=== PATIENT | male | born 1955 | race Hispanic/Latino ===

== ENCOUNTER 2024-12-05 03:18 | Inpatient (IN) | payer OTHER ==
[2024-12-05 03:58] LABS: Absolute Lymphocytes (CBC) 2.2 K/uL (0.7-4.9); Hematocrit 42.2 % (39.6-49.0); Hemoglobin 14.2 g/dL (13.6-17.9); MCH 29.4 pg (27.0-35.0); MCHC 33.8 g/dL (32.0-36.0); MCV 87.2 fL (80-100); MPV 10.3 fL (7.6-11.3); Nucleated RBC Absolute Count 0.0 (0-0); Nucleated Red Blood Cells % 0.0 % (0-0); RBC Red Blood Cell Count 4.84 M/uL (4.33-5.43); White Blood Count 7.20 thou/uL (4.3-10.9)
[2024-12-05 04:04] LABS: PT Prothrombin Time 11.6 SECONDS (10-13.0); Protime INR 1.03
[2024-12-05] MEDS ORDERED: FOLIC ACID 5 MG/ML VIAL ONE (04:13)
[2024-12-05] MEDS ORDERED: NA CHLORIDE 0.9% 1,000 ML ONE ×2 (04:13→09:56)
--- NOTE | 2024-12-05 04:33 | RAD REPORT ---
ADDENDUM #1 CODE STROKE PROTOCOL NOTIFICATION: Dr. Gunnar To MD confirmed receipt of results to Osmar Alfaro on 12/05/2024 4:35 AM CDT. Electronically signed by: Garfield Israel MD 12/05/2024 04:44 AM CDT RP 8 End of Addendum EXAM: CT Head Without Intravenous Contrast CLINICAL HISTORY: The patient is 69 years old and is Male; STROKE ALERT TECHNIQUE: Axial computed tomography images of the head/brain without intravenous contrast. Sagit oscar and coronal reformatted images were created and reviewed. This CT exam was performed using one or more of the following dose reduction techniques: automated exposure control, adjustment of t he mA and/or kV according to patient size, and/or use of iterative reconstruction technique. COMPARISON: No relevant prior studies available. FINDINGS: Brain: Unremarkable. No hemorrhage. No significant white matter disease. No edema. Ventricles: Unremarkable. No ventriculomegaly. Bones/joints: Unremarkable. No acute fracture. Soft tissues: Unremarkable. Sinuses: Unremarkable as visualized. Mastoid air cells: Unremarkable as visualized. No mastoid effusion. * A single impression for all exams can be found at the end of this report EXAM: CT Angiography Head With Intravenous Contrast CLINICAL HISTORY: The patient is 69 years old and is Male; STROKE ALERT TECHNIQUE: Axial computed tomographic angiography images of the head with intravenous contrast. S agittal and coronal reformatted images were created and reviewed. This CT exam was performed using one or more of the following dose reduction techniques: automated exposure control, adjustmen t of the mA and/or kV according to patient size, and/or use of iterative reconstruction technique. MIP reconstructed images were created and reviewed. COMPARISON: No relevant prior studies available. FINDINGS: Right internal carotid artery: No acute findings. Intracranial segment is patent with no signif icant stenosis. No aneurysm. Right anterior cerebral artery: Unremarkable. No occlusion or significant stenosis. No aneury sm. Right middle cerebral artery: Unremarkable. No occlusion or significant stenosis. No aneurysm . Right posterior cerebral artery: Unremarkable. No occlusion or significant stenosis. No aneur ysm. Right vertebral artery: Unremarkable as visualized. Left internal carotid artery: No acute findings. Intracranial segment is patent with no signifi cant stenosis. No aneurysm. Left anterior cerebral artery: Unremarkable. No occlusion or significant stenosis. No aneurys m. Left middle cerebral artery: Unremarkable. No occlusion or significant stenosis. No aneurysm. 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 No occlusion or significant stenosis. No aneurysm. Left vertebral artery: Unremarkable as visualized. Basilar artery: Unremarkable. No occlusion or significant stenosis. No aneurysm. * A single impression for all exams can be found at the end of this report EXAM: CT Angiography Neck With Intravenous Contrast CLINICAL HISTORY: The patient is 69 years old and is Male; STROKE ALERT TECHNIQUE: Routine carotid CT angiography protocol was performed with intravenous contrast. NASCE T criteria using the distal ICAs for comparison were used for evaluation of stenoses. Sagittal and coronal reformatted images were created and reviewed. This CT exam was performed using one or m ore of the following dose reduction techniques: automated exposure control, adjustment of the mA and/or kV according to patient size, and/or use of iterative reconstruction technique. MIP reconstr ucted images were created and reviewed. COMPARISON: None. FINDINGS: VASCULATURE: Right common carotid artery: Unremarkable. No occlusion or significant stenosis. No dissectio n. Right internal carotid artery: Unremarkable. Extracranial segment is patent with no occlusion o r significant stenosis. No dissection. Right external carotid artery: Unremarkable. No occlusion. Right vertebral artery: Unremarkable. No occlusion or significant stenosis. No dissection. Left common carotid artery: Unremarkable. No occlusion or significant stenosis. No dissection . Left internal carotid artery: Unremarkable. Extracranial segment is patent with no occlusion or significant stenosis. No dissection. Left external carotid artery: Unremarkable. No occlusion. Left vertebral artery: Unremarkable. No occlusion or significant stenosis. No dissection. NECK: Bones/joints: Unremarkable. No acute fracture. Soft tissues: Unremarkable. Lung apices: Clear. CAROTID STENOSIS REFERENCE USING NASCET CRITERIA: % ICA stenosis = (1 - narrowest ICA diameter/diameter of distal cervical ICA) x 100. Mild - <50% stenosis. Moderate - 50-69% stenosis. Severe - 70-94% stenosis. Near occlusion - 95-99% stenosis. Occluded - 100% stenosis. * A single impression for all exams can be found at the end of this report IMPRESSION: CT Head Without Intravenous Contrast: No acute intracranial abnormality. CT Angiography Head With Intravenous Contrast: No occlusion or significant stenosis. No aneurysm. CT Angiography Neck With Intravenous Contrast: No significant stenosis. No dissection or occlusion. Electronically signed by: Garfield Israel MD 12/05/2024 04:29 AM CDT RP 8 Due to temporary technical issues with the PACS/[employer]Pages reporting system, reports are being dayanara d by the in-house radiologist without review as a courtesy to ensure prompt reporting the interpreting radiologist is fully responsible for the content of the report. Transcribed Date/Time: 12/05/2024 5:44 AM
[2024-12-05 04:34] LABS: ALT/SGPT 48 U/L (16-61); Albumin 4.1 g/dL (3.4-5.0); Albumin/Globulin Ratio 1.1 (1.1-1.8); Alkaline Phosphatase 70 U/L (45-117); Anion Gap 7.6 mEq/L (5.0-15.0); BUN Blood Urea Nitrogen 18 mg/dL (7-18); Bilirubin Indirect, Calculated 1.1 mg/dL (0.2-0.8); Globulin 3.6 g/dL (2.3-3.5); Glucose Level 149 mg/dL (74-106); HDL Cholesterol 56 mg/dL (40-60); LDL Cholesterol, Calculated 59 mg/dL (<130); LDL Cholesterol,Calc NonReport 59; Lipase 46 U/L (13-75); NT PRO-BNP 57 pg/mL (<125); Troponin High Sensitivity 5.1 pg/mL (<58.9)
--- NOTE | 2024-12-05 04:34 | RAD REPORT ---
ADDENDUM #1 CODE STROKE PROTOCOL NOTIFICATION: Dr. Gunnar To MD confirmed receipt of results to Osmar Alfaro on 12/05/2024 4:35 AM CDT. Electronically signed by: Garfield Israel MD 12/05/2024 04:44 AM CDT RP 8 End of Addendum EXAM: CT Head Without Intravenous Contrast CLINICAL HISTORY: The patient is 69 years old and is Male; STROKE ALERT TECHNIQUE: Axial computed tomography images of the head/brain without intravenous contrast. Sagit oscar and coronal reformatted images were created and reviewed. This CT exam was performed using one or more of the following dose reduction techniques: automated exposure control, adjustment of t he mA and/or kV according to patient size, and/or use of iterative reconstruction technique. COMPARISON: No relevant prior studies available. FINDINGS: Brain: Unremarkable. No hemorrhage. No significant white matter disease. No edema. Ventricles: Unremarkable. No ventriculomegaly. Bones/joints: Unremarkable. No acute fracture. Soft tissues: Unremarkable. Sinuses: Unremarkable as visualized. Mastoid air cells: Unremarkable as visualized. No mastoid effusion. * A single impression for all exams can be found at the end of this report EXAM: CT Angiography Head With Intravenous Contrast CLINICAL HISTORY: The patient is 69 years old and is Male; STROKE ALERT TECHNIQUE: Axial computed tomographic angiography images of the head with intravenous contrast. S agittal and coronal reformatted images were created and reviewed. This CT exam was performed using one or more of the following dose reduction techniques: automated exposure control, adjustmen t of the mA and/or kV according to patient size, and/or use of iterative reconstruction technique. MIP reconstructed images were created and reviewed. COMPARISON: No relevant prior studies available. FINDINGS: Right internal carotid artery: No acute findings. Intracranial segment is patent with no signif icant stenosis. No aneurysm. Right anterior cerebral artery: Unremarkable. No occlusion or significant stenosis. No aneury sm. Right middle cerebral artery: Unremarkable. No occlusion or significant stenosis. No aneurysm . Right posterior cerebral artery: Unremarkable. No occlusion or significant stenosis. No aneur ysm. Right vertebral artery: Unremarkable as visualized. Left internal carotid artery: No acute findings. Intracranial segment is patent with no signifi cant stenosis. No aneurysm. Left anterior cerebral artery: Unremarkable. No occlusion or significant stenosis. No aneurys m. Left middle cerebral artery: Unremarkable. No occlusion or significant stenosis. No aneurysm. 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 No occlusion or significant stenosis. No aneurysm. Left vertebral artery: Unremarkable as visualized. Basilar artery: Unremarkable. No occlusion or significant stenosis. No aneurysm. * A single impression for all exams can be found at the end of this report EXAM: CT Angiography Neck With Intravenous Contrast CLINICAL HISTORY: The patient is 69 years old and is Male; STROKE ALERT TECHNIQUE: Routine carotid CT angiography protocol was performed with intravenous contrast. NASCE T criteria using the distal ICAs for comparison were used for evaluation of stenoses. Sagittal and coronal reformatted images were created and reviewed. This CT exam was performed using one or m ore of the following dose reduction techniques: automated exposure control, adjustment of the mA and/or kV according to patient size, and/or use of iterative reconstruction technique. MIP reconstr ucted images were created and reviewed. COMPARISON: None. FINDINGS: VASCULATURE: Right common carotid artery: Unremarkable. No occlusion or significant stenosis. No dissectio n. Right internal carotid artery: Unremarkable. Extracranial segment is patent with no occlusion o r significant stenosis. No dissection. Right external carotid artery: Unremarkable. No occlusion. Right vertebral artery: Unremarkable. No occlusion or significant stenosis. No dissection. Left common carotid artery: Unremarkable. No occlusion or significant stenosis. No dissection . Left internal carotid artery: Unremarkable. Extracranial segment is patent with no occlusion or significant stenosis. No dissection. Left external carotid artery: Unremarkable. No occlusion. Left vertebral artery: Unremarkable. No occlusion or significant stenosis. No dissection. NECK: Bones/joints: Unremarkable. No acute fracture. Soft tissues: Unremarkable. Lung apices: Clear. CAROTID STENOSIS REFERENCE USING NASCET CRITERIA: % ICA stenosis = (1 - narrowest ICA diameter/diameter of distal cervical ICA) x 100. Mild - <50% stenosis. Moderate - 50-69% stenosis. Severe - 70-94% stenosis. Near occlusion - 95-99% stenosis. Occluded - 100% stenosis. * A single impression for all exams can be found at the end of this report IMPRESSION: CT Head Without Intravenous Contrast: No acute intracranial abnormality. CT Angiography Head With Intravenous Contrast: No occlusion or significant stenosis. No aneurysm. CT Angiography Neck With Intravenous Contrast: No significant stenosis. No dissection or occlusion. Electronically signed by: Garfield Israel MD 12/05/2024 04:29 AM CDT RP 8 Due to temporary technical issues with the PACS/[employer] reporting system, reports are being dayanara d by the in-house radiologist without review as a courtesy to ensure prompt reporting the interpreting radiologist is fully responsible for the content of the report. Transcribed Date/Time: 12/05/2024 5:45 AM
[2024-12-05 04:40] LABS: AST/SGOT 37 U/L (15-37); C-Reactive Protein < 2.90 mg/L (<3.00); Magnesium 1.9 mg/dL (1.6-2.4); Potassium 4.6 mEq/L (3.5-5.1)
--- NOTE | 2024-12-05 04:40 | ER ---
Nurse's Notes [facility] Name: Abisai Anton III Age: 69 yrs Sex: Male : 1955 Arrival Date: 12/05/2024 Time: 03:18 Bed 4 Private MD: Rashel Bertrand Diagnosis: Chest pain, unspecified;Type 2 diabetes mellitus with hyperglycemia;Transient cerebral ischemic attack, unspecified-resolved Presentation: 12/05 03:24 Chief complaint: Patient states: dizziness, nausea, left arm and face numbness lg3 beginning 9pm. Coronavirus screen: Client denies travel out of the [place] in the last 14 days. At this time, the client does not indicate any symptoms associated with coronavirus-19. Ebola Screen: No symptoms or risks identified at this time. Initial Sepsis Screen: Does the patient meet any 2 criteria? No. Patient's initial sepsis screen is negative. Does the patient have a suspected source of infection? No. Patient's initial sepsis screen is negative. Risk Assessment: Do you want to hurt yourself or someone else? Patient reports no desire to harm self or others. Onset of symptoms was December 04, 2024 at 21:00. 03:24 Method Of Arrival: Wheelchair lg3 03:24 Acuity: KATH 2 lg3 Triage Assessment: 03:25 General: Appears in no apparent distress. comfortable, Behavior is calm, cooperative. lg3 Pain: Denies pain. EENT: No deficits noted. No signs and/or symptoms were reported regarding the EENT system. Neuro: Roman Agitation-Sedation Scale (RASS): 0 - Alert and Calm Level of Consciousness is awake, alert, obeys commands, Oriented to person, place, time, situation, Reports dizziness, numbness in face and left arm. Cardiovascular: No deficits noted. Denies chest pain, shortness of breath, Capillary refill < 3 seconds Clubbing of nail beds is absent JVD is absent Patient's skin is warm and dry. Respiratory: No deficits noted. Airway is patent Respiratory effort is even, unlabored, Respiratory pattern is regular, symmetrical. GI: No deficits noted. Abdomen is flat, non-distended, Reports nausea. : No signs and/or symptoms were reported regarding the genitourinary system. Derm: No deficits noted. Skin is intact, is healthy with good turgor, Skin is dry, Skin is normal, Skin temperature is warm. Musculoskeletal: No deficits noted. Circulation, motion, and sensation intact. Range of motion: intact in all extremities, Reports numbness in face and left arm. Historical: - Allergies: 03:25 No Known Allergies; lg3 - Home Meds: 03:25 metformin Oral [Active]; aspirin 81 mg Oral tablet [Active]; lg3 - PMHx: 03:25 diabetes mellitus; lg3 - PSHx: 03:25 None; lg3 - Immunization history:: Adult Immunizations up to date. - Infectious Disease History:: Denies. - Social history:: Smoking status: Patient denies any tobacco usage or history of. Patient/guardian denies using alcohol, street drugs. Screenin:[address] [facility] ED Fall Risk Assessment (Adult) History of falling in the last 3 months, cp4 including since admission No falls in past 3 months (0 pts) Confusion or Disorientation No (0 pts) Intoxicated or Sedated No (0 pts) Impaired Gait No (0 pts) Mobility Assist Device Used No (0 pt) Altered Elimination No (0 pt) Score/Fall Risk Level 0 - 2 = Low Risk Oriented to surroundings, Maintained a safe environment, Assessed \T\ reinforced patient's understanding of fall precautions, Hourly rounding (assess needs \T\ fall precautionary measures) done. Abuse screen: Denies threats or abuse. Denies injuries from another. Nutritional screening: No deficits noted. Tuberculosis screening: No symptoms or risk factors identified. Never had TB. VAN Screening: Arm Drift: Patient shows no arm weakness. Patient is VAN negative. Visual Disturbance: No visual disturbance noted. Aphasia: No aphasia noted. Neglect: No neglect noted. [place] Swallow Protocol Brief Cognitive Screen What is your name? Normal, Where are you right now? Normal, What year is it? Oral Mechanism Examination Facial Symmetry: Normal, Motion: Lip Closure: Normal, Oral Mechanism Result: Normal. 3 oz Water Swallow Challenge: Pt able to drink all water without stopping, coughing, choking or throat clearing: Yes Result: MEHDI COTE Notified: Gunnar To MD. Assessment: 04:02 General: Appears in no apparent distress. comfortable, Behavior is calm, cooperative, cp4 appropriate for age. Pain: Complains of pain in chest and left arm and face Pain does not radiate. Pain currently is 6 out of 10 on a pain scale. Pain began 1 day ago. Neuro: Level of Consciousness is awake, alert, obeys commands, Oriented to person, place, time, situation, Grout Machine Tender are equal bilaterally Moves all extremities. Gait is steady, Speech is normal, Facial symmetry appears normal, Pupils are PERRLA, Intact. Cardiovascular: Patient's skin is warm and dry. Rhythm is sinus rhythm. Respiratory: Airway is patent Respiratory effort is even, unlabored. GI: No signs and/or symptoms were reported involving the gastrointestinal system. : No signs and/or symptoms were reported regarding the genitourinary system. EENT: No signs and/or symptoms were reported regarding the EENT system. Derm: No signs and/or symptoms reported regarding the dermatologic system. Musculoskeletal: No signs and/or symptoms reported regarding the musculoskeletal system. 07:00 General: Appears in no apparent distress. comfortable, Behavior is calm, cooperative, cm10 Assumed care of patient at this time. Pt A\T\Ox4, respirations even and unlabored. Pt reports dizziness, respirations even and unlabored. Updated on plan of care.. 07:00 Neuro: No deficits noted. Level of Consciousness is awake, alert, obeys commands, cm10 Oriented to person, place, time, situation, Grout Machine Tender are equal bilaterally Moves all extremities. Gait is steady, Speech is normal, Facial symmetry appears normal. Respiratory: No deficits noted. Airway is patent Respiratory effort is even, unlabored, Respiratory pattern is regular, symmetrical. 07:55 General: Pt in MRI at this time.. cm10 Vital Signs: 03:24 BP 165 / 90; Pulse 81; Resp 17 S; Temp 98.3(O); Pulse Ox 100% on R/A; Weight 81.19 kg lg3 (R); Height 5 ft. 7 in. (R); 04:00 BP 141 / 91; Pulse 81; Resp 18; Pulse Ox 98% ; cp4 04:30 BP 120 / 73; Pulse 72; Resp 18; Pulse Ox 98% ; cp4 05:00 BP 132 / 74; Pulse 71; Resp 18; Pulse Ox 98% ; cp4 05:30 BP 141 / 77; Pulse 70; Resp 18; Pulse Ox 98% ; cp4 06:00 BP 121 / 75; Pulse 66; Resp 18; Pulse Ox 98% ; cp4 06:30 BP 120 / 72; Pulse 68; Resp 18; Pulse Ox 98% ; cp4 07:00 BP 128 / 76; Pulse 69; Resp 18; Pulse Ox 98% ; cp4 07:30 BP 135 / 77; Pulse 69; Resp 16; Pulse Ox 99% ; cm10 03:24 Body Mass Index 28.04 (81.19 kg, 170.18 cm) lg3 NIH Stroke Scale Scores: 04:02 NIHSS Score: 0 cp4 04:20 NIHSS Score: 0 jhony 07:25 NIHSS Score: 0 cm10 ED Course: 03:21 Patient arrived in ED. jj6 03:21 Rashel Bertrand MD is Private Physician. jj6 03:25 Triage completed. lg3 03:25 Arm band placed on right wrist. lg3 03:29 EKG done, by ED staff, reviewed by Gunnar To MD. oe 03:35 Gunnar To MD is Attending Physician. jhony 03:47 CT Stroke Brain w/o Contrast In Process Unspecified. EDMS 03:47 CT Head Angio In Process Unspecified. EDMS 03:48 CT Neck Angio In Process Unspecified. EDMS 04:02 Patient has correct armband on for positive identification. Bed in low position. Call cp4 light in reach. Side rails up X2. Client placed on continuous cardiac and pulse oximetry monitoring. NIBP monitoring applied. potline monitor on. Pulse ox on. NIBP on. 04:02 No provider procedures requiring assistance completed. Inserted saline lock: 20 gauge cp4 in left antecubital area, using aseptic technique. Blood collected. Flushed with 10 mL NS. Patient maintains SpO2 saturation greater than 95% on room air. 04:20 XRAY Chest (1 view) In Process Unspecified. EDMS 04:32 Sumaya Clemente is Primary Nurse. cp4 04:39 Lio Ferrer MD is Hospitalizing Provider. jhony 07:25 Provided Education on: Need for admit. cm10 07:25 Patient admitted, IV remains in place. cm10 Administered Medications: 04:16 Drug: foLIC Acid IVPB 1 mg IVPB once Route: IVPB; Site: left antecubital; cp4 04:39 Follow up: IV Status: Completed infusion cp4 04:16 Drug: NS 0.9% IV 1000 ml IV at 1000 ml once; to be given as a bolus over 60 minutes cp4 Route: IV; Rate: 1000 ml; Site: left antecubital; 05:05 Follow up: IV Status: Completed infusion cp4 05:05 Drug: Aspirin PO Chewable Tablet 324 mg PO once; 81 mg tablets x 4 Route: PO; cp4 05:08 Follow up: Response: No adverse reaction cp4 05:05 Drug: Clopidogrel PO 75 mg PO once Route: PO; cp4 05:08 Follow up: Response: No adverse reaction cp4 05:05 Drug: Enoxaparin Sub-Q 1 mg/kg Sub-Q once Route: Sub-Q; Site: abdomen; cp4 05:08 Follow up: Response: No adverse reaction cp4 05:05 Drug: Atorvastatin PO 40 mg PO once Route: PO; cp4 05:08 Follow up: Response: No adverse reaction cp4 Medication: 04:02 VIS not applicable for this client. cp4 Outcome: 04:40 Decision to Hospitalize by Provider. jhony 07:25 Admitted to ER Hold. Please see [facility] for further documentation. 10 07:25 Condition: good 07:25 Instructed on the need for admit, 12:39 Patient left the ED. cm10 NIH Stroke Scale - NIH Stroke Score Date: 12/05/2024 Time: 04:02 Total Score = 0 10. Dysarthria (speech clarity - read or repeat words) - 0(Normal) 11. Extinction and Inattention (visual/tactile/auditory/spatial/personal) - 0(No abnormality) 1a. Level of Consciousness (LOC) - 0(Alert) 1b. Level of Consciousness (LOC) (Month \T\ Age) - 0(Both) 1c. LOC Commands (Open \T\ Closes Eyes/Bpo Specialist) - 0(Both) 2. Best Gaze (Lateral Gaze Paresis) - 0(Normal) 3. Visual Field Loss - 0(No visual loss) 4. Facial Palsy - 0(Normal) 5a. Left Arm: Motor (10-second hold) - 0(No drift) 5b. Right Arm: Motor (10-second hold) - 0(No drift) 6a. Left Leg: Motor (5-second hold - always test supine) - 0(No drift) 6b. Right Leg: Motor (5-second hold - always test supine) - 0(No drift) 7. Limb Ataxia (finger/nose \T\ heel/hardwick - test with eyes open) - 0(Absent) 8. Sensory Loss (pinprick arms/legs/face) - 0(Normal) 9. Best Language: Aphasia (description/naming/reading) - 0(No aphasia) Initials: cp4 NIH Stroke Scale - NIH Stroke Score Date: 12/05/2024 Time: 04:20 Total Score = 0 10. Dysarthria (speech clarity - read or repeat words) - 0(Normal) 11. Extinction and Inattention (visual/tactile/auditory/spatial/personal) - 0(No abnormality) 1a. Level of Consciousness (LOC) - 0(Alert) 1b. Level of Consciousness (LOC) (Month \T\ Age) - 0(Both) 1c. LOC Commands (Open \T\ Closes Eyes/Bpo Specialist) - 0(Both) 2. Best Gaze (Lateral Gaze Paresis) - 0(Normal) 3. Visual Field Loss - 0(No visual loss) 4. Facial Palsy - 0(Normal) 5a. Left Arm: Motor (10-second hold) - 0(No drift) 5b. Right Arm: Motor (10-second hold) - 0(No drift) 6a. Left Leg: Motor (5-second hold - always test supine) - 0(No drift) 6b. Right Leg: Motor (5-second hold - always test supine) - 0(No drift) 7. Limb Ataxia (finger/nose \T\ heel/hardwick - test with eyes open) - 0(Absent) 8. Sensory Loss (pinprick arms/legs/face) - 0(Normal) 9. Best Language: Aphasia (description/naming/reading) - 0(No aphasia) Initials: jhony NIH Stroke Scale - NIH Stroke Score Date: 12/05/2024 Time: 07:25 Total Score = 0 10. Dysarthria (speech clarity - read or repeat words) - 0(Normal) 11. Extinction and Inattention (visual/tactile/auditory/spatial/personal) - 0(No abnormality) 1a. Level of Consciousness (LOC) - 0(Alert) 1b. Level of Consciousness (LOC) (Month \T\ Age) - 0(Both) 1c. LOC Commands (Open \T\ Closes Eyes/Bpo Specialist) - 0(Both) 2. Best Gaze (Lateral Gaze Paresis) - 0(Normal) 3. Visual Field Loss - 0(No visual loss) 4. Facial Palsy - 0(Normal) 5a. Left Arm: Motor (10-second hold) - 0(No drift) 5b. Right Arm: Motor (10-second hold) - 0(No drift) 6a. Left Leg: Motor (5-second hold - always test supine) - 0(No drift) 6b. Right Leg: Motor (5-second hold - always test supine) - 0(No drift) 7. Limb Ataxia (finger/nose \T\ heel/hardwick - test with eyes open) - 0(Absent) 8. Sensory Loss (pinprick arms/legs/face) - 0(Normal) 9. Best Language: Aphasia (description/naming/reading) - 0(No aphasia) Initials: cm10 Signatures: Dispatcher [employer] EDMS Gunnar To MD MD cha Espinosa, [place] oe Able, Lacie RN RN lg3 Katey Whittj6 Marilee Gama RN RN cm10 Sumaya Clemente cp4 Corrections: (The following items were deleted from the chart) 09:57 07:30 BP 135 / 7; Pulse 69bpm; Resp 16bpm; Pulse Ox 99%; cm10 cm10
--- NOTE | 2024-12-05 04:41 | EDPHYS ---
Physician Documentation [facility] Name: Abisai Anton III Age: 69 yrs Sex: Male : 1955 Arrival Date: 12/05/2024 Time: 03:18 Bed 4 Private MD: Rashel Bertrand ED Physician Gunnar To HPI: 12/05 03:40 This 69 yrs old Male presents to ER via Wheelchair with complaints of Chest jhony Pain, Arm Pain. 03:40 The patient or guardian reports chest pain that is located primarily in the substernal jhony area. Onset: at 09:30. The pain radiates to face and left arm. Associated signs and symptoms: Pertinent positives: lightheadedness, shortness of breath. The chest pain is described as burning, a pressure. Duration: The patient or guardian reports a single episode, that is now resolved. Modifying factors: The symptoms are alleviated by nothing. the symptoms are aggravated by nothing. Severity of pain: At its worst the pain was moderate in the emergency department the pain has improved moderately. The patient has experienced similar episodes in the past, a few times. Historical: - Allergies: 03:25 No Known Allergies; lg3 - Home Meds: 03:25 metformin Oral [Active]; aspirin 81 mg Oral tablet [Active]; lg3 - PMHx: 03:25 diabetes mellitus; lg3 - PSHx: 03:25 None; lg3 - Immunization history:: Adult Immunizations up to date. - Infectious Disease History:: Denies. - Social history:: Smoking status: Patient denies any tobacco usage or history of. Patient/guardian denies using alcohol, street drugs. ROS: 03:41 Constitutional: Negative for fever, chills, and weight loss, Eyes: Negative for injury, jhony pain, redness, and discharge, ENT: Negative for injury, pain, and discharge, Neck: Negative for injury, pain, and swelling, Respiratory: Negative for shortness of breath, cough, wheezing, and pleuritic chest pain, Abdomen/GI: Negative for abdominal pain, nausea, vomiting, diarrhea, and constipation, Back: Negative for injury and pain, : Negative for injury, bleeding, discharge, and swelling, MS/Extremity: Negative for injury and deformity, Skin: Negative for injury, rash, and discoloration, Psych: Negative for depression, anxiety, suicide ideation, homicidal ideation, and hallucinations, Allergy/Immunology: Negative for hives, rash, and allergies, Endocrine: Negative for neck swelling, polydipsia, polyuria, polyphagia, and marked weight changes, Hematologic/Lymphatic: Negative for swollen nodes, abnormal bleeding, and unusual bruising, 03:41 Cardiovascular: Positive for chest pain, of the chest, 03:41 Neuro: Positive for numbness, tingling, of the face and left arm, Exam: 03:41 Radiologist reports: see report jhony 03:41 Constitutional: This is a well developed, well nourished patient who is awake, alert, and in no acute distress. Eyes: Pupils equal round and reactive to light, extra-ocular motions intact. Lids and lashes normal. Conjunctiva and sclera are non-icteric and not injected. Cornea within normal limits. Periorbital areas with no swelling, redness, or edema. ENT: Nares patent. No nasal discharge, no septal abnormalities noted. Tympanic membranes are normal and external auditory canals are clear. Oropharynx with no redness, swelling, or masses, exudates, or evidence of obstruction, uvula midline. Mucous membranes moist. Neck: Trachea midline, no thyromegaly or masses palpated, and no cervical lymphadenopathy. Supple, full range of motion without nuchal rigidity, or vertebral point tenderness. No Meningismus. Chest/axilla: Normal chest wall appearance and motion. Nontender with no deformity. No lesions are appreciated. Respiratory: Lungs have equal breath sounds bilaterally, clear to auscultation and percussion. No rales, rhonchi or wheezes noted. No increased work of breathing, no retractions or nasal flaring. Abdomen/GI: Soft, non-tender, with normal bowel sounds. No distension or tympany. No guarding or rebound. No evidence of tenderness throughout. Back: No spinal tenderness. No costovertebral tenderness. Full range of motion. Male : Normal genitalia with no discharge or lesions. Skin: Warm, dry with normal turgor. Normal color with no rashes, no lesions, and no evidence of cellulitis. Neuro: Awake and alert, GCS 15, oriented to person, place, time, and situation. Cranial nerves II-XII grossly intact. Motor strength 5/5 in all extremities. Sensory grossly intact. Cerebellar exam normal. Normal gait. Psych: Awake, alert, with orientation to person, place and time. Behavior, mood, and affect are within normal limits. 03:41 Head/face: Noted is numbness left face 930 pm. 03:41 ECG was reviewed by the Attending Physician. 03:41 Musculoskeletal/extremity: DVT Exam: No signs of deep vein thrombosis. no pain, no swelling, no tenderness, negative Homans' sign noted on exam, no appreciated bluish discoloration, no erythema, no increased warmth, Vital Signs: 03:24 BP 165 / 90; Pulse 81; Resp 17 S; Temp 98.3(O); Pulse Ox 100% on R/A; Weight 81.19 kg lg3 (R); Height 5 ft. 7 in. (R); 04:00 BP 141 / 91; Pulse 81; Resp 18; Pulse Ox 98% ; cp4 04:30 BP 120 / 73; Pulse 72; Resp 18; Pulse Ox 98% ; cp4 05:00 BP 132 / 74; Pulse 71; Resp 18; Pulse Ox 98% ; cp4 05:30 BP 141 / 77; Pulse 70; Resp 18; Pulse Ox 98% ; cp4 06:00 BP 121 / 75; Pulse 66; Resp 18; Pulse Ox 98% ; cp4 06:30 BP 120 / 72; Pulse 68; Resp 18; Pulse Ox 98% ; cp4 07:00 BP 128 / 76; Pulse 69; Resp 18; Pulse Ox 98% ; cp4 07:30 BP 135 / 77; Pulse 69; Resp 16; Pulse Ox 99% ; cm10 03:24 Body Mass Index 28.04 (81.19 kg, 170.18 cm) lg3 NIH Stroke Scale Scores: 04:02 NIHSS Score: 0 cp4 04:20 NIHSS Score: 0 jhony 07:25 NIHSS Score: 0 cm10 MDM: 03:35 Medical Screening Exam initiated jhony 03:44 Differential diagnosis: abnormal EKG, acute myocardial infarction, acute pericarditis, jhony anxiety, coronary artery disease chest wall pain, congestive heart failure Cholelithiasis costochondritis, CVA, TIA, Dementia, paralysis, esophagitis, gastritis, herpes zoster, hiatal hernia, myocarditis, pancreatitis, peptic ulcer disease, pericarditis, pleurisy, pulmonary embolus, stable angina, thoracic aortic disection, unstable angina. Differential Diagnosis altered mental status, sepsis, flu. HEART Score: History: Moderately Suspicious (1), ECG: Normal (0), Age: > or = 65 years (2), Risk Factors: > or = 3 Risk factors for atherosclerotic disease (2), [Hypercholesterolemia] [Hypertension] [DM] [+ Family HX] Troponin: < or = 1 x Normal Limit (0). The patient was given aspirin in the Emergency Department. TNKase (Tenecteplase) Screening: Indications: Definite evidence of stroke, ischemic, embolic, or hypertensive: Yes. Treatment will start within 4.5 hours onset of symptoms: No. No evidence of intracranial hemorrhage or CT of head and no evidence of peripheral hemorrhage or recent CVA: Yes. Consent for thrombolytic therapy: No. Contraindications: Patient reports onset of signs and symptoms of stroke greater than 6 hours ago: Yes. MALIA Risk Score: 1 - patient's age is greater or equal to 65 years, 1 - Three or more CAD risk factors, 1- Known CAD, 1 - ASA use in past 7 days, 1 - Recent [<24hrs] Severe Angina, TOTAL SCORE = 5. Data reviewed: vital signs, nurses notes, lab test result(s), EKG, radiologic studies, plain films. Consideration of Admission/Observation Patient was admitted/placed on observation. Escalation of care including admission/observation considered. I considered the following discharge prescriptions or medication management in the emergency department Medications were administered in the Emergency Department. See MAR. Test considered but Not performed: MRI: no mri , not available. Care significantly affected by the following chronic conditions: Diabetes, Hypertension, Obesity. Counseling: I had a detailed discussion with the patient and/or guardian regarding the historical points, exam findings, and any diagnostic results supporting the discharge/admit diagnosis, the presence of at least one elevated blood pressure reading (>120/80) during this emergency department visit, lab results, radiology results, the need for further work-up and treatment in the hospital. 04:21 ED course: onset 930 pm, no tnk candidate, if lvo neg asp, plavix , lovenox, mri in am, jhony echo, neuro consult. 12/05 03:38 Order name: Basic Metabolic Panel; Complete Time: 04:50 [facility] 12/05 03:38 Order name: CBC with Diff; Complete Time: 04:14 [facility] 12/05 03:38 Order name: LFT's; Complete Time: 04:50 jhony 12/05 03:38 Order name: Magnesium; Complete Time: 04:50 jhony 12/05 03:38 Order name: NT PRO-BNP; Complete Time: 04:50 jhony 12/05 03:38 Order name: PT-INR; Complete Time: 04:14 jhony 12/05 03:38 Order name: Troponin HS; Complete Time: 04:50 jhony 12/05 03:38 Order name: Lipase; Complete Time: 04:50 jhony 12/05 03:38 Order name: UA Rfx Kade Cult if indicated 12/05 03:38 Order name: Lipid Profile; Complete Time: 04:50 jhony 12/05 03:38 Order name: CRP; Complete Time: 04:50 jhony 12/05 03:40 Order name: Glucose, Ancillary Testing; Complete Time: 04:14 EDMS 12/05 05:41 Order name: CBC with Automated Diff EDMS 12/05 05:41 Order name: CBC with Automated Diff EDMS 12/05 05:41 Order name: Comprehensive Metabolic Panel EDMS 12/05 05:41 Order name: Comprehensive Metabolic Panel EDMS 12/05 05:41 Order name: Lipid Profile EDMS 12/05 05:41 Order name: Lipid Profile EDMS 12/05 05:41 Order name: Troponin High Sensitivity EDMS 12/05 05:41 Order name: Troponin High Sensitivity EDMS 12/05 05:41 Order name: Troponin High Sensitivity EDMS 12/05 05:41 Order name: Troponin High Sensitivity EDMS 12/05 05:41 Order name: Troponin High Sensitivity EDMS 12/05 05:41 Order name: Troponin High Sensitivity EDMS 12/05 06:44 Order name: CREATININE WHOLE BLOOD EDMS 12/05 03:38 Order name: XRAY Chest (1 view) jhony 12/05 03:38 Order name: CT Stroke Brain w/o Contrast jhony 12/05 03:38 Order name: CT Head Angio jhony 12/05 03:38 Order name: CT Neck Angio jhony 12/05 05:43 Order name: Echo with Doppler EDMS 12/05 05:43 Order name: Brain Wo Cont EDMS 12/05 03:38 Order name: EKG; Complete Time: 03:39 jhony 12/05 03:38 Order name: Cardiac monitoring; Complete Time: 04:02 jhony 12/05 03:38 Order name: EKG - Nurse/Tech; Complete Time: 04:02 [facility] 12/05 03:38 Order name: IV Saline Lock; Complete Time: 04:02 [facility] 12/05 03:38 Order name: Labs collected and sent; Complete Time: 04:02 [facility] 12/05 03:38 Order name: O2 Per Protocol; Complete Time: 04:02 [facility] 12/05 03:38 Order name: O2 Sat Monitoring; Complete Time: 04:02 [facility] EC:41 Rate is 85 beats/min. Rhythm is regular. QRS Tynan is Normal. FL interval is normal. QRS jhony interval is normal. QT interval is normal. No Q waves. T waves are Normal. No ST changes noted. Clinical impression: Normal ECG and No evidence of ischemia. Interpreted by me. Reviewed by me. Administered Medications: 04:16 Drug: foLIC Acid IVPB 1 mg IVPB once Route: IVPB; Site: left antecubital; cp4 04:39 Follow up: IV Status: Completed infusion cp4 04:16 Drug: NS 0.9% IV 1000 ml IV at 1000 ml once; to be given as a bolus over 60 minutes cp4 Route: IV; Rate: 1000 ml; Site: left antecubital; 05:05 Follow up: IV Status: Completed infusion cp4 05:05 Drug: Aspirin PO Chewable Tablet 324 mg PO once; 81 mg tablets x 4 Route: PO; cp4 05:08 Follow up: Response: No adverse reaction cp4 05:05 Drug: Clopidogrel PO 75 mg PO once Route: PO; cp4 05:08 Follow up: Response: No adverse reaction cp4 05:05 Drug: Enoxaparin Sub-Q 1 mg/kg Sub-Q once Route: Sub-Q; Site: abdomen; cp4 05:08 Follow up: Response: No adverse reaction cp4 05:05 Drug: Atorvastatin PO 40 mg PO once Route: PO; cp4 05:08 Follow up: Response: No adverse reaction cp4 Disposition: 04:22 Critical Care:. jhony Disposition Summary: 12/05/24 04:40 Hospitalization Ordered Notes: Hospitalization Status: Observation jhony Provider: Lio Ferrer cha Condition: Stable jhony Problem: new jhony Symptoms: have improved jhony Bed/Room Type: Standard jhony Location: Telemetry/MedSurg (observation)(12/05/24 11:30) bd Room Assignment: [facility](12/05/24 11:52) bd Diagnosis - Chest pain, unspecified jhony - Type 2 diabetes mellitus with hyperglycemia jhony - Transient cerebral ischemic attack, unspecified - resolved jhony Forms: - Medication Reconciliation Form jhony - SBAR form jhony - Leadership Thank You Letter jhony Critical care time excluding procedures: 04:22 Critical care time: Bedside Care: 30 minutes, Consultation: 10 minutes, Family jhony Intervention: 15 minutes. Total time: 55 minutes NIH Stroke Scale - NIH Stroke Score Date: 12/05/2024 Time: 04:02 Total Score = 0 10. Dysarthria (speech clarity - read or repeat words) - 0(Normal) 11. Extinction and Inattention (visual/tactile/auditory/spatial/personal) - 0(No abnormality) 1a. Level of Consciousness (LOC) - 0(Alert) 1b. Level of Consciousness (LOC) (Month \T\ Age) - 0(Both) 1c. LOC Commands (Open \T\ Closes Eyes/Technical Education Teacher) - 0(Both) 2. Best Gaze (Lateral Gaze Paresis) - 0(Normal) 3. Visual Field Loss - 0(No visual loss) 4. Facial Palsy - 0(Normal) 5a. Left Arm: Motor (10-second hold) - 0(No drift) 5b. Right Arm: Motor (10-second hold) - 0(No drift) 6a. Left Leg: Motor (5-second hold - always test supine) - 0(No drift) 6b. Right Leg: Motor (5-second hold - always test supine) - 0(No drift) 7. Limb Ataxia (finger/nose \T\ heel/hardwick - test with eyes open) - 0(Absent) 8. Sensory Loss (pinprick arms/legs/face) - 0(Normal) 9. Best Language: Aphasia (description/naming/reading) - 0(No aphasia) Initials: cp4 NIH Stroke Scale - NIH Stroke Score Date: 12/05/2024 Time: 04:20 Total Score = 0 10. Dysarthria (speech clarity - read or repeat words) - 0(Normal) 11. Extinction and Inattention (visual/tactile/auditory/spatial/personal) - 0(No abnormality) 1a. Level of Consciousness (LOC) - 0(Alert) 1b. Level of Consciousness (LOC) (Month \T\ Age) - 0(Both) 1c. LOC Commands (Open \T\ Closes Eyes/Technical Education Teacher) - 0(Both) 2. Best Gaze (Lateral Gaze Paresis) - 0(Normal) 3. Visual Field Loss - 0(No visual loss) 4. Facial Palsy - 0(Normal) 5a. Left Arm: Motor (10-second hold) - 0(No drift) 5b. Right Arm: Motor (10-second hold) - 0(No drift) 6a. Left Leg: Motor (5-second hold - always test supine) - 0(No drift) 6b. Right Leg: Motor (5-second hold - always test supine) - 0(No drift) 7. Limb Ataxia (finger/nose \T\ heel/hardwick - test with eyes open) - 0(Absent) 8. Sensory Loss (pinprick arms/legs/face) - 0(Normal) 9. Best Language: Aphasia (description/naming/reading) - 0(No aphasia) Initials: [facility] NIH Stroke Scale - NIH Stroke Score Date: 12/05/2024 Time: 07: Total Score = 0 10. Dysarthria (speech clarity - read or repeat words) - 0(Normal) 11. Extinction and Inattention (visual/tactile/auditory/spatial/personal) - 0(No abnormality) 1a. Level of Consciousness (LOC) - 0(Alert) 1b. Level of Consciousness (LOC) (Month \T\ Age) - 0(Both) 1c. LOC Commands (Open \T\ Closes Eyes/Technical Education Teacher) - 0(Both) 2. Best Gaze (Lateral Gaze Paresis) - 0(Normal) 3. Visual Field Loss - 0(No visual loss) 4. Facial Palsy - 0(Normal) 5a. Left Arm: Motor (10-second hold) - 0(No drift) 5b. Right Arm: Motor (10-second hold) - 0(No drift) 6a. Left Leg: Motor (5-second hold - always test supine) - 0(No drift) 6b. Right Leg: Motor (5-second hold - always test supine) - 0(No drift) 7. Limb Ataxia (finger/nose \T\ heel/hardwick - test with eyes open) - 0(Absent) 8. Sensory Loss (pinprick arms/legs/face) - 0(Normal) 9. Best Language: Aphasia (description/naming/reading) - 0(No aphasia) Initials: cm10 Signatures: Dispatcher [employer] EDMS ArabellaRoxana harvey bd Gunnar To MD MD cha Garcia, Cindy RN SHANTANU Emani Bettencourt RN RN 3 Sumaya Clemente 4 Corrections: (The following items were deleted from the chart) 03:39 03:39 BASIC METABOLIC PANEL+C.LAB.BRZ ordered. EDMS EDMS 03:39 03:39 CBC+H.LAB.BRZ ordered. EDMS EDMS 03:39 03:39 HEPATIC FUNCTION+C.LAB.BRZ ordered. EDMS EDMS 03:39 03:39 MAGNESIUM+C.LAB.BRZ ordered. EDMS EDMS 03:39 03:39 PROBNP+C.LAB.BRZ ordered. EDMS EDMS 03:39 03:39 PROTIME (+INR)+COAG.LAB.BRZ ordered. EDMS EDMS 03:39 03:39 Troponin High Sensitivity+C.LAB.BRZ ordered. EDMS EDMS 03:39 03:39 LIPASE+C.LAB.BRZ ordered. EDMS EDMS 03:39 03:39 UA Rfx Kade Cult if indicated+U.LAB.BRZ ordered. EDMS EDMS 03:39 03:39 LIPID PROFILE+C.LAB.BRZ ordered. EDMS EDMS 03:39 03:39 C-REACTIVE PROTEIN+C.LAB.BRZ ordered. EDMS EDMS 03:39 03:39 CT-STROKE BRAIN W/O CONTRAST+CT.RAD.BRZ ordered. EDMS EDMS 03:39 03:39 Head Angio+CT.RAD.BRZ ordered. EDMS EDMS 03:39 03:39 Neck Angio+CT.RAD.BRZ ordered. EDMS EDMS 05:11 04:40 Telemetry/MedSurg (observation) jhony cg 05:11 04:40 jhony cg 11:30 05:11 [facility] ER HOLD cg bd 11:30 05:11 ERHOLD- cg bd 11:52 11:30 422 bd bd
[2024-12-05] MEDS ORDERED: ASPIRIN 81 MG CHEWABLE TABLET ONE (05:00)
[2024-12-05] MEDS ORDERED: ATORVASTATIN 40 MG TAB ONE (05:00)
[2024-12-05] MEDS ORDERED: ENOXAPARIN 80 MG/0.8 ML SQ ONE (05:00)
[2024-12-05] MEDS ORDERED: CLOPIDOGREL 75 MG TABLET ONE (05:00)
--- NOTE | 2024-12-05 05:35 | P.HP ---
Certification for Inpatient Patient admitted to: Inpatient With expected LOS: >2 Midnights Practitioner: I am a practitioner with admitting privileges, knowledge of patient current condition, hospital course, and medical plan of care. Services: Services provided to patient in accordance with Admission requirements found in Title 42 Section 412.3 of the Code of Federal Regulations Patient History Date of Service: 12/05/24 History of Present Illness: 69 yrs old Male with past medical history of diabetes, hypertension who was brought to ER with complaints of Chest Pain and Arm Pain. His chest pain that is located primarily in the substernal area. Started at 09:30. The pain radiates to face and left arm. Associated with lightheadedness and shortness of breath.The chest pain is described as burning, a pressure. The symptoms are alleviated by nothing. the symptoms are aggravated by nothing. Patient is also complaining of some numbness on the left side of the arm. Patient was assessed in the ER and was admitted for further workup Allergies No Known Allergies Allergy (Verified 09/10/24 06:15) Home medications list reviewed: Yes Home Medications: Aspirin [Aspirin EC 81 MG] 81 mg PO DAILY #30 tab 09/10/24 Bimatoprost [Lumigan Opthalmic Drops*] 1 drop EACH EYE BEDTIME 09/10/24 Brimonidine Tartrate/Timolol [Combigan 0.2%-0.5% Eye Drops] 1 drop EACH EYE BID 09/10/24 Metformin HCl 1,000 mg PO BID 09/10/24 Multivitamin/Iron/Folic Acid [Centrum Adults Tablet] 1 each PO DAILY 09/10/24 Rosuvastatin [Crestor] 5 mg PO BEDTIME #30 tab 09/10/24 - Past Medical/Surgical History Diabetic: Yes Past Medical History: Reviewed- Non-Contributory -: DM -: Hepatitis C Past Surgical History: Reviewed- Non-Contributory -: Vasectomy - Family History Family History: Reviewed- Non-Contributory - Social History Smoking Status: Never smoker Alcohol use: No CD- Drugs: No Caffeine use: Yes Review of Systems 10-point ROS is otherwise unremarkable Other: Constitutional: Reports: generalized weakness. Skin: Denies: rash. Allergy/Immun: Denies: rhinorrhea, sneezing. Eyes: Denies: visual loss/blurred. ENT: Denies: earache, nasal congestion. Respiratory: Denies: non productive cough. Cardiovascular: Denies: chest pain, palpitations. GI: Denies: diarrhea, nausea. : Denies: dysuria. Musculoskeletal: Reports: arthritis. Denies: extremity pain. Heme: Denies: bleeding. Endocrine: Denies: polydipsia. Neuro: Reports: dizziness, gait problem, lightheaded, spinning sensation. Psych: Reports: anxiety. All systems rev & neg: except as noted Physical Examination - Vital Signs Temperature: 98.2 F Blood Pressure: 138/76 Pulse: 76 Respirations: 18 Pulse Ox (%): 94 - Physical Exam General: Alert, In no apparent distress, Oriented x3 HEENT: Atraumatic, Normocephalic, PERRLA Neck: Supple, No Thyromegaly Respiratory: Clear to auscultation bilaterally, Normal air movement Cardiovascular: Regular rate/rhythm, Normal S1 S2 Capillary refill: <2 Seconds Gastrointestinal: Soft and benign, Non-distended, W/out hepatosplenomegaly Musculoskeletal: No clubbing, No swelling Integumentary: No rashes Neurological: Other (Alert awake nonfocal) Lymphatics: No axilla or inguinal lymphadenopathy - Studies Laboratory Data (last 24 hrs) 12/05/24 12/05/24 12/05/24 03:28 03:28 03:28 WBC 7.20 Hgb 14.2 Hct 42.2 Plt Count 214 PT 11.6 INR 1.03 Sodium 135 L Potassium 4.6 BUN 18 Creatinine 0.96 Glucose 149 H Magnesium 1.9 Total Bilirubin 1.4 H AST 37 ALT 48 Alkaline Phosphatase 70 Triglycerides 71 Cholesterol 129 HDL Cholesterol 56 Cholesterol/HDL Ratio 2.30 Lipase 46 Assessment and Plan - Plan Chest pain rule out ACS Will trend cardiac enzymes Will monitor telemetry Started on aspirin and statin EKG did not show any acute changes suggestive of ischemia Patient denies any chest pain at this time Will get an echocardiogram Cardiology consult CVA/TIA No focal weakness Numbness of left-sided body Started on aspirin and statin CT CTA findings noted MRI brain ordered Monitor neuro vital signs Monitor under telemetry Diabetes Insulin sliding scale Accu-Chek before every meal and at bedtime GI/DVT prophylaxis Advanced directive full code Discharge Plan: Home Plan to discharge in: 48 Hours - Advance Directives Does patient have a Living Will: No Does patient have a Durable POA for Healthcare: No - Code Status/Comfort Care Code Status: Full Code Time Spent Managing Pts Care (In Minutes): 48
[2024-12-05] MEDS ORDERED: ONDANSETRON 4 MG/2 ML VIAL IV PRN (05:36)
[2024-12-05] MEDS ORDERED: ACETAMINOPHEN 325 MG TABLET PO PRN (05:36)
--- NOTE | 2024-12-05 05:50 | RAD REPORT ---
INDICATION: CHEST PAIN COMPARISON: No existing relevant imaging studies are available FINDINGS: Single frontal view of the chest was obtained. SUPPORT DEVICES: None HEART/MEDIASTINUM: Cardiomediastinal contours are normal. LUNGS/PLEURA: Lungs are clear. No pleural effusion or pneumothorax. OTHER: No other significant findings. IMPRESSION: No acute findings. Electronically signed by: Steven Spence DO 12/05/2024 04:35 AM CDT RP NR Due to temporary technical issues with the PACS/[employer] reporting system, reports are being dayanara d by the in-house radiologist without review as a courtesy to ensure prompt reporting the interpreting radiologist is fully responsible for the content of the report. Transcribed Date/Time: 12/05/2024 5:50 AM
[2024-12-05 05:57] LABS: Urine Microscopic Reflex YN NO UMIC
[2024-12-05] MEDS: ASPIRIN EC 81 MG TAB PO SCH (09:00)
[2024-12-05] MEDS: ENOXAPARIN 40 MG/0.4 ML SQ SCH (09:00)
--- NOTE | 2024-12-05 09:03 | RAD REPORT ---
EXAMINATION: MRI BRAIN WITHOUT CONTRAST CLINICAL INDICATION: Dizziness TECHNIQUE: Multiplanar multisequence MR images of the brain were obtained without intravenous contras t. Unless otherwise specified, incidental findings do not require dedicated imaging follow-up. COMPARISON: December 05, 2004 FINDINGS: Mild abnormal signal within periventricular, deep and subcortical white matter probably ischemic mitchell ges secondary to small vessel disease. Diffusion weighted/ADC mapping does not demonstrate evidence of an acute infarction. Ventricles are normal caliber. No extra-axial fluid collection. No fluid within the sinuses/mastoid seen IMPRESSION: No acute intracranial abnormalities displayed
[2024-12-05] MEDS ORDERED: ENOXAPARIN 40 MG/0.4 ML SQ ONE (09:42)
[2024-12-05] MEDS ORDERED: FAMOTIDINE 20 MG/2 ML VIAL IV ONE (09:56)
--- NOTE | 2024-12-05 13:52 | P.CNS ---
Date of Consult: 12/05/24 Chief Complaint: chest pain History of Present Illness: Patient with PMH of HTN, presented with chest pain that happened yesterday, pressure in nature, radiated to his neck, denies any other cardiac symptoms. Allergies No Known Allergies Allergy (Verified 09/10/24 06:15) Home medications list reviewed: Yes Home Medications: Aspirin [Aspirin EC 81 MG] 81 mg PO DAILY #30 tab 09/10/24 Bimatoprost [Lumigan Opthalmic Drops*] 1 drop EACH EYE BEDTIME 09/10/24 Brimonidine Tartrate/Timolol [Combigan 0.2%-0.5% Eye Drops] 1 drop EACH EYE BID 09/10/24 Metformin HCl 1,000 mg PO BID 09/10/24 Multivitamin/Iron/Folic Acid [Centrum Adults Tablet] 1 each PO DAILY 09/10/24 Atorvastatin Calcium 40 mg PO BEDTIME 12/05/24 Metoprolol Succinate [Toprol Xl] 25 mg PO DAILY 12/05/24 - Past Medical/Surgical History Diabetic: Yes -: DM -: Hepatitis C -: Vasectomy - Social History Alcohol use: No CD- Drugs: No Caffeine use: Yes Place of Residence: Home Review of Systems 10-point ROS is otherwise unremarkable Physical Examination Temp Pulse Resp BP Pulse Ox 98.2 F 65 15 140/83 100 12/05/24 10:00 12/05/24 10:00 12/05/24 10:00 12/05/24 10:00 12/05/24 10:00 General: Alert, In no apparent distress HEENT: Atraumatic, PERRLA, Mucous membr. moist/pink, EOMI, Sclerae nonicteric Neck: Supple, 2+ carotid pulse no bruit, No LAD, Without JVD or thyroid abnormality Respiratory: Clear to auscultation bilaterally, Normal air movement Cardiovascular: Regular rate/rhythm, Normal S1 S2 Gastrointestinal: Normal bowel sounds, No tenderness Musculoskeletal: No tenderness Integumentary: No rashes Neurological: Normal gait, Normal speech, Normal tone, Normal affect Lymphatics: No axilla or inguinal lymphadenopathy Laboratory Data (last 24 hrs) 12/05/24 12/05/24 12/05/24 03:28 03:28 03:28 WBC 7.20 Hgb 14.2 Hct 42.2 Plt Count 214 PT 11.6 INR 1.03 Sodium 135 L Potassium 4.6 BUN 18 Creatinine 0.96 Glucose 149 H Magnesium 1.9 Total Bilirubin 1.4 H AST 37 ALT 48 Alkaline Phosphatase 70 Triglycerides 71 Cholesterol 129 HDL Cholesterol 56 Cholesterol/HDL Ratio 2.30 Lipase 46 - Problems (1) Chest pain Current Visit: Yes Status: Acute Plan: concern for angina NPO after midnight for coronary angiogram in am ASA 81 mg daily Lipitor 40 mg daily get echo (2) HTN (hypertension) Current Visit: Yes Status: Acute Plan: continue Toprol XL 25mg daily (3) HLD (hyperlipidemia) Current Visit: Yes Status: Acute Plan: continue lipitor 40 mg daily
--- NOTE | 2024-12-05 16:41 | P.PN ---
Subjective Date of Service: 12/05/24 Chief Complaint: chest pain Subjective: Improving <Denise Desai - Last Filed: 12/05/24 18:39> Date of Service: 12/05/24 <Delmis Ortega - Last Filed: 12/06/24 05:05> Review of Systems General: Weakness Eyes: Unremarkable ENT: Unremarkable Respiratory: SOB with Excertion Cardiovascular: Chest Pain Gastrointestinal: Unremarkable Genitourinary: Unremarkable Musculoskeletal: Unremarkable Neurological: Weakness Lymphatics: Unremarkable <Denise Desai - Last Filed: 12/05/24 18:39> Physical Examination - Vital Signs Temperature: 98.3 F Blood Pressure: 135/77 Pulse: 69 Respirations: 16 Pulse Ox (%): 100 - Physical Exam General: Alert, In no apparent distress, Oriented x3, Cooperative HEENT: Atraumatic, PERRLA, EOMI Neck: Supple, JVD not distended Respiratory: Clear to auscultation bilaterally, Normal air movement Cardiovascular: Regular rate/rhythm, Normal S1 S2 Capillary refill: <2 Seconds Gastrointestinal: Normal bowel sounds, No tenderness Musculoskeletal: No clubbing, No tenderness Integumentary: No rashes Neurological: Normal speech, Normal tone, Normal affect Lymphatics: No axilla or inguinal lymphadenopathy - Studies Laboratory Data (last 24 hrs) 12/05/24 12/05/24 12/05/24 03:28 03:28 03:28 WBC 7.20 Hgb 14.2 Hct 42.2 Plt Count 214 PT 11.6 INR 1.03 Sodium 135 L Potassium 4.6 BUN 18 Creatinine 0.96 Glucose 149 H Magnesium 1.9 Total Bilirubin 1.4 H AST 37 ALT 48 Alkaline Phosphatase 70 Triglycerides 71 Cholesterol 129 HDL Cholesterol 56 Cholesterol/HDL Ratio 2.30 Lipase 46 <Denise Desai - Last Filed: 12/05/24 18:39> Assessment And Plan - Plan Interval history. 12/05/2024. Patient seen at bedside. Patient seen by plate hanger. Will need a left heart cath. N.p.o. after midnight. Brain unremarkable for any acute intracranial abnormality. Will continue to monitor patient's clinical conditions. Fall precautions. Continue supportive care. Chest pain rule out ACS Will trend cardiac enzymes Will monitor telemetry Started on aspirin and statin EKG did not show any acute changes suggestive of ischemia Patient denies any chest pain at this time Will get an echocardiogram Cardiology consult CVA/TIA No focal weakness Numbness of left-sided body Started on aspirin and statin CT CTA findings noted MRI brain ordered Monitor neuro vital signs Monitor under telemetry Diabetes Insulin sliding scale Accu-Chek before every meal and at bedtime GI/DVT prophylaxis Advanced directive full code Discharge Plan: Home - Code Status/Comfort Care Code Status Assessed: Yes Physician Review: Patient Assessed, Agree with Above Assessment and Plan Critical Care: No <Denise Desai - Last Filed: 12/05/24 18:39> Date of Service: 12/05/24 Chart has been reviewed. Events of the last 24 hours have been noted. Case discussed with BIB. I performed a substantial part of the MDM during this patient's care today. I personally made or approved the documented management plan and acknowledge its risk of complications. I agree with the findings and documentation provided in the BIB's notes Patient vertigo is resolved. Patient did not have any vision issues. Patient has some nausea but no vomiting. Patient getting further cardiac workup with echocardiogram and cardiac catheterization. Hopefully, workup is negative pa tient can be discharged. CT imaging and MRI was unremarkable. Cardiac CT scan (09/28/24): Cardiac CTA shows moderate stenosis in the proximal segment of the LAD. Rest of the coronary artery shows mild stenosis. Total calcium score noted to be 209. <Delmis Ortega - Last Filed: 12/06/24 05:05>
[2024-12-05] MEDS: ATORVASTATIN 40 MG TAB PO SCH (20:49)
[2024-12-06 04:29] VITALS: TEMP 97.8
[2024-12-06 07:11] LABS: Absolute Lymphocytes (CBC) 1.2 K/uL (0.7-4.9); Hematocrit 40.8 % (39.6-49.0); Hemoglobin 13.5 g/dL (13.6-17.9); MCH 28.8 pg (27.0-35.0); MCHC 33.0 g/dL (32.0-36.0); MCV 87.3 fL (80-100); MPV 9.6 fL (7.6-11.3); Nucleated RBC Absolute Count 0.0 (0-0); Nucleated Red Blood Cells % 0.1 % (0-0); RBC Red Blood Cell Count 4.68 M/uL (4.33-5.43); White Blood Count 4.50 thou/uL (4.3-10.9)
[2024-12-06 07:32] LABS: ALT/SGPT 42.0 U/L (16-61); AST/SGOT 26.0 U/L (15-37); Albumin 3.6 g/dL (3.4-5.0); Albumin/Globulin Ratio 1.2 (1.1-1.8); Alkaline Phosphatase 66.0 U/L (45-117); Anion Gap 8.1 mEq/L (5.0-15.0); BUN Blood Urea Nitrogen 14.0 mg/dL (7-18); Globulin 3.1 g/dL (2.3-3.5); Glucose Level 131.0 mg/dL (74-106); HDL Cholesterol 51.0 mg/dL (40-60); LDL Cholesterol, Calculated 48.0 mg/dL (<130); LDL Cholesterol,Calc NonReport 48.0; Potassium 4.1 mEq/L (3.5-5.1)
[2024-12-06] MEDS ORDERED: NA CHLORIDE 0.9% 500 ML ONE (08:44)
[2024-12-06] MEDS ORDERED: LIDOCAINE 1% 20 ML MDV ONE (10:03)
[2024-12-06] MEDS ORDERED: HEPARIN 5000 UNIT/ML 1 ML VIAL ONE (10:03)
[2024-12-06] MEDS ORDERED: HEPA 1000U/500MLS 2,000 UNIT/1,000 ML BAG IV ONE (10:03)
[2024-12-06] MEDS ORDERED: HEPARIN 10,000 UNIT/10 ML VIAL IV ONE (10:03)
[2024-12-06] MEDS ORDERED: FENTANYL CITR 100 MCG/2 ML ONE (10:17)
[2024-12-06] MEDS ORDERED: MIDAZOLAM HCL 2 MG/2 ML INJ ONE (10:17)
[2024-12-06 11:39] VITALS: BMI 28.0
--- NOTE | 2024-12-06 12:24 | P.PN ---
Subjective Date of Service: 12/06/24 Chief Complaint: chest pain Subjective: No new changes, No C/O voiced, Tolerating diet, Ambulating, Improving Review of Systems 10-point ROS is otherwise unremarkable Physical Examination - Vital Signs Temperature: 97.8 F Blood Pressure: 124/71 Pulse: 66 Respirations: 16 Pulse Ox (%): 98 - Physical Exam General: Alert, In no apparent distress HEENT: Atraumatic, PERRLA, EOMI Neck: Supple, JVD not distended Respiratory: Clear to auscultation bilaterally, Normal air movement Cardiovascular: Regular rate/rhythm, Normal S1 S2 Gastrointestinal: Normal bowel sounds, No tenderness Musculoskeletal: No tenderness Integumentary: No rashes Neurological: Normal speech, Normal tone, Normal affect Lymphatics: No axilla or inguinal lymphadenopathy - Studies Medications List Reviewed: Yes Assessment And Plan - Current Problems (Diagnosis) (1) Chest pain Current Visit: Yes Status: Acute Plan: concern for angina Coronary angiogram done and show mild to moderate mid LAD disease, dual LAD system, medical management ASA 81 mg daily Lipitor 40 mg daily outpatient follow up with cardiology (2) HTN (hypertension) Current Visit: Yes Status: Acute Plan: continue Toprol XL 25mg daily (3) HLD (hyperlipidemia) Current Visit: Yes Status: Acute Plan: continue lipitor 40 mg daily Physician Review: Patient Assessed, Agree with Above Assessment and Plan
[2024-12-06 14:07] VITALS: BP 144/71; O2SAT 93
--- NOTE | 2024-12-06 15:05 | P.DS ---
Admission Date: 12/05/24 Discharge Date: 12/06/24 Disposition: ROUTINE DISCHARGE Discharge Condition: GOOD Reason for Admission: chest pain Consultations: Cardiology - Dr. Wakefield Brief History of Present Illness: 69 yo M, PMH: diabetes, hypertension Patient was brought to ER with complaints of Chest Pain and Arm Pain. His chest pain that is located primarily in the substernal area. Started at 09:30. The pain radiates to face and left arm. Associated with lightheadedness and shortness of breath.The chest pain is described as burning, a pressure. The symptoms are alleviated by nothing. the symptoms are aggravated by nothing. Patient is also complaining of some numbness on the left side of the arm. Patient was assessed in the ER and was admitted for further workup Hospital Course: Problem List Mild-Moderate CAD Hypertension Hyperlipidemia DM2 Physician discharge instructions: Patient presented with chest pain radiating to face and left arm associated with shortness of breath secondary to mild-mod CAD. Troponins were negative x4. EKG was without ischemic changes. Cardiology was consulted and recommended left heart catheterization to further evaluate which showed mild to moderate mid LAD disease, dual LAD system. Full report pending upon discharge but can discuss further at outpatient follow up. Cardiology recommending medical management, no evidence to warrant further intervention at this time. Follow up with cardiology in a few weeks for further management and to further discuss results. In regards to numbness, stroke work up was negative including CT head, head and neck CTA, and MRI brain. Medications: no change in home medications continue metoprolol, aspirin, statin Follow up: PCP 3-5 days Cardiology in 2-4 weeks Please call to schedule / confirm appointments Physical Exam: GEN: Alert, oriented, NAD CV: Regular rate and rhythm, no edema Pulm:Nonlabored respirations on room air, clear bilaterally ABD: soft, nontender, nondistended Neuro: Normal speech, normal affect Vital Signs/Physical Exam: Temp Pulse Resp BP Pulse Ox 97.8 F 84 16 144/71 H 98 12/06/24 12:24 12/06/24 13:45 12/06/24 13:45 12/06/24 13:45 12/06/24 12:24 Laboratory Data at Discharge: WBC 4.50 thou/uL (4.3-10.9) 12/06/24 06:33 Hgb 13.5 g/dL (13.6-17.9) L 12/06/24 06:33 Hct 40.8 % (39.6-49.0) 12/06/24 06:33 Plt Count 181 thou/uL (152-406) 12/06/24 06:33 PT 11.6 SECONDS (10-13.0) 12/05/24 03:28 INR 1.03 12/05/24 03:28 Sodium 139 mEq/L (136-145) 12/06/24 06:33 Potassium 4.1 mEq/L (3.5-5.1) 12/06/24 06:33 BUN 14 mg/dL (7-18) 12/06/24 06:33 Creatinine 0.86 mg/dL (0.70-1.30) 12/06/24 06:33 Glucose 131 mg/dL (74-106) H 12/06/24 06:33 Magnesium 1.9 mg/dL (1.6-2.4) 12/05/24 03:28 Total Bilirubin 1.4 mg/dL (0.2-1.0) H 12/06/24 06:33 AST 26 U/L (15-37) 12/06/24 06:33 ALT 42 U/L (16-61) 12/06/24 06:33 Alkaline Phosphatase 66 U/L (45-117) 12/06/24 06:33 Triglycerides 70 mg/dL (<150) 12/06/24 06:33 Cholesterol 113 mg/dL (<200) 12/06/24 06:33 HDL Cholesterol 51 mg/dL (40-60) 12/06/24 06:33 Cholesterol/HDL Ratio 2.22 12/06/24 06:33 Lipase 46 U/L (13-75) 12/05/24 03:28 Home Medications: Aspirin [Aspirin EC 81 MG] 81 mg PO DAILY #30 tab 09/10/24 Bimatoprost [Lumigan Opthalmic Drops*] 1 drop EACH EYE BEDTIME 09/10/24 Brimonidine Tartrate/Timolol [Combigan 0.2%-0.5% Eye Drops] 1 drop EACH EYE BID 09/10/24 Metformin HCl 1,000 mg PO BID 09/10/24 Multivitamin/Iron/Folic Acid [Centrum Adults Tablet] 1 each PO DAILY 09/10/24 Atorvastatin Calcium 40 mg PO BEDTIME 12/05/24 Metoprolol Succinate [Toprol Xl*] 25 mg PO DAILY 12/05/24 Physician Discharge Instructions: Physician discharge instructions: Patient presented with chest pain radiating to face and left arm associated with shortness of breath secondary to mild-mod CAD. Troponins were negative x4. EKG was without ischemic changes. Cardiology was consulted and recommended left heart catheterization to further evaluate which showed mild to moderate mid LAD disease, dual LAD system. Full report pending upon discharge but can discuss further at outpatient follow up. Cardiology recommending medical management, no evidence to warrant further intervention at this time. Follow up with cardiology in a few weeks for further management and to further discuss results. In regards to numbness, stroke work up was negative including CT head, head and neck CTA, and MRI brain. Medications: no change in home medications continue metoprolol, aspirin, statin Follow up: PCP 3-5 days Cardiology in 2-4 weeks Please call to schedule / confirm appointments Followup: Rashel Bertrand MD [Primary Care Provider] - Time spent managing pt's care (in minutes): 45
--- NOTE | 2024-12-07 03:40 | OP ---
Date of Procedure: 12/06/2024 Surgeon: Antonio Wakefield Procedure Performed: Selective coronary angiogram with left heart catheterization. Indication For Procedure: Unstable angina. Complications: None. Estimated Blood Loss: Less than 50 cc. Access: Right radial, closed by TR band. Sedation Time: 30 minutes with 2 of Versed and 50 of fentanyl. Description Of Procedure: After risks, benefits, and alternatives were explained to the patient, the patient agreed to proceed with the procedure and signed informed consent. The patient was brought [facility] to the blood bank laboratory professional, prepped and draped in sterile fashion. Time-out was performed. Sedation was ad ministered. Next, right radial access was obtained using ultrasound-guided micropuncture technique. [place] 4 catheter was advanced over a J-wire to the aortic root. Selective angiogram was done of the left and right coronary systems. At the end of the procedure, catheter was removed over J-wire. Sh eath was removed. TR band was applied. Hemostasis was achieved. The patient was moved back to [facility] in stable condition. Findings: 1. Left main normal. 2. LAD proximal mild luminal irregularities. Then, becomes small artery. It kind of looks like a du al LAD system. One of them had mid 40% to 50% disease. The second LAD or the large diagonal comes w ith the origin of that disease with mild luminal irregularities. 3. Left circ, mild luminal irregularities. 4. RCA, mild luminal irregularities. 5. LVEDP 13 mmHg. Assessment: Mild to moderate mid LAD disease. Plan: To continue medical management. KAYLEIGH/ANNA MARIE Voice ID: [id number] Report ID: [id number]
== END 2024-12-06 15:00 | disposition home or self-care (01) | DRG 287 ==
LOC: ER 03:18 → ERHOLD 05:36 → 4TH 12:02
PROVIDERS: ADMIT Family Medicine; ATTEND Hospitalist
PROC: 4A023N7 Measurement of Cardiac Sampling and Pressure, Left Heart, Percutaneous Approach (ICD-10-PCS; principal; 2024-12-06)
PROC: B2111ZZ Fluoroscopy of Multiple Coronary Arteries using Low Osmolar Contrast (ICD-10-PCS; 2024-12-06)
DX: I25.110 Atherosclerotic heart disease of native coronary artery with unstable angina pectoris (principal); I10 Essential (primary) hypertension; E78.5 Hyperlipidemia, unspecified; E11.65 Type 2 diabetes mellitus with hyperglycemia; R20.0 Anesthesia of skin; Z79.82 Long term (current) use of aspirin; Z79.84 Long term (current) use of oral hypoglycemic drugs; Z79.899 Other long term (current) drug therapy
CPT/HCPCS: 36415; 70450; 70496; 70498; 70551; 71045; 76937; 80048; 80053; 80061; 80076; 81003; 82565; 82947; 83690; 83735; 83880; 84484; 85025; 85610; 86140; 93005; 93306; 93458; 94760; 96365; 96372; 99152; 99153; 99285; C1893; J1644; J1650; J2003; J2250; J3010; J7030; J7040; Q9966; Q9967